=== PATIENT | male | born 1955 | race Caucasian/White ===

== ENCOUNTER 2016-02-17 14:56 | Emergency (ER) | payer MEDICAID ==
[2016-02-17] MEDS ORDERED: IPRATROPIUM/ALBUTEROL 3 ML DEYVIAL IH ONE ×2 (16:09→17:15)
--- NOTE | 2016-02-17 16:09 | DX ---
AP and lateral chest - February 17, 2016 Clinical indication: Low oxygen saturations. Comparison: July 11, 2013. Findings: Heart size is upper limits of normal. There is mild prominence of the live bilaterally and very mild increased interstitial markings. Bones are grossly unremarkable, except for degenerative ch anges. Cardiophrenic angles remain sharp. Impression: Query early CHF. Less likely this could represent diffuse interstitial pneumonia. Critical results relayed by Dr. Clint Belle to Dr. Rambo Lindsey on February 17, 2016, at 1603 hours.
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
[2016-02-17 16:41] LABS: HEMATOCRIT 40.5 % (40.0-51.0); HEMOGLOBIN 13.9 g/dL (13.7-17.5); MEAN CELL HEMOGLOBIN 33.7 pg (27.9-34.1); MEAN CELL HEMOGLOBIN CONCENTR. 34.3 g/dL (32.4-36.7); MEAN CELL VOLUME 98.3 fL (81.5-99.8); MEAN PLATELET VOLUME 9.4 fL (8.7-11.7); PLATELET COUNT 222 10^3/uL (150-400); RED BLOOD CELL COUNT 4.12 10^6/uL (4.40-6.38)
[2016-02-17 16:42] LABS: % IMMATURE GRANULYOCYTES 0.2 % (0.0-1.1)
[2016-02-17 16:43] LABS: ABSOLUTE IMMATURE GRANULOCYTES 0.01 10^3/uL (0.00-0.10); ADD DIFF? NO; ADD MORPH? NO; ADD SCAN? NO
--- NOTE | 2016-02-17 16:44 | CPEKG ---
Heart Rate: 76 RR Interval: 789 P-R Interval: 152 QRSD Interval: 106 QT Interval: 380 QTC Interval: 428 P [place]: 50 QRS [place]: 46 T Wave [place]: 52 EKG Severity - NORMAL ECG - EKG Impression: SINUS RHYTHM Electronically Signed By: Rambo Lindsey 17-Feb-2016 17:07:39
[2016-02-17 16:45] VITALS: BP 112/80
[2016-02-17 16:59] LABS: ALANINE AMINOTRANSFERASE 24 IU/L (21-72); ALBUMIN 3.2 g/dL (3.5-5.0); ALKALINE PHOSPHATASE 59 IU/L (38-126); ANION GAP 7 mEq/L (8-16); ASPARTATE AMINOTRANSFERASE 18 IU/L (17-59); BILIRUBIN,TOTAL 0.8 mg/dL (0.1-1.4); CALCIUM 8.1 mg/dL (8.5-10.4); CARBON DIOXIDE 32 mEq/l (22-31); CHLORIDE 98 mEq/L (97-110); CREATININE 1.2 mg/dL (0.7-1.3); GLOMERULAR FILTRATION RATE > 60; GLUCOSE 102 mg/dL (70-100); POTASSIUM 3.9 mEq/L (3.5-5.2); SODIUM 137 mEq/L (134-144); TOTAL PROTEIN 6.1 g/dL (6.3-8.2)
[2016-02-17 17:04] LABS: TROPONIN I < 0.012 ng/mL (0-0.034)
[2016-02-17 17:10] VITALS: PULSE 79; RESP 20; O2SAT 97
[2016-02-17] MEDS ORDERED: predniSONE 20 MG TAB PO ONE (17:14)
== END 2016-02-17 18:10 | disposition home or self-care (01) ==
LOC: CED 14:56
DX: R06.02 Shortness of breath (principal); R07.1 Chest pain on breathing; R09.81 Nasal congestion; R05 Cough; Z72.0 Tobacco use
CPT/HCPCS: 71020-PO; 80053-PO; 83880-PO; 84484-PO; 85025-PO; 99214-PO; G0463-PO

== ENCOUNTER 2016-07-25 16:55 | Inpatient (IN) | payer MEDICAID ==
--- NOTE | 2016-07-25 17:08 | CPEKG ---
Heart Rate: 82 RR Interval: 732 P-R Interval: 172 QRSD Interval: 98 QT Interval: 376 QTC Interval: 439 P [place]: 70 QRS [place]: 83 T Wave [place]: 67 EKG Severity - OTHERWISE NORMAL ECG - EKG Impression: SINUS RHYTHM EKG Impression: BORDERLINE RIGHT AXIS DEVIATION Electronically Signed By: Paige Bah 25-Jul-2016 21:36:59
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
[2016-07-25] MEDS ORDERED: NS 500 ML IV ONE (17:52)
[2016-07-25 17:56] LABS: % IMMATURE GRANULYOCYTES 0.1 % (0.0-1.1); ABSOLUTE IMMATURE GRANULOCYTES 0.01 10^3/uL (0.00-0.10); ADD DIFF? NO; ADD MORPH? NO; ADD SCAN? NO; ATYPICAL LYMPHOCYTE FLAG 20 (0-99); FRAGMENT RBC FLAG 0 (0-99); HEMATOCRIT 45.5 % (40.0-51.0); HEMOGLOBIN 15.3 g/dL (13.7-17.5); LEFT SHIFT FLG 0 (0-99); LIPEMIA HEMOLYSIS FLAG 80 (0-99); MEAN CELL HEMOGLOBIN 33.6 pg (27.9-34.1); MEAN CELL HEMOGLOBIN CONCENTR. 33.6 g/dL (32.4-36.7); MEAN CELL VOLUME 99.8 fL (81.5-99.8); MEAN PLATELET VOLUME 9.8 fL (8.7-11.7); PLATELET CLUMPS FLAG 0 (0-99); PLATELET COUNT 233 10^3/uL (150-400); RED BLOOD CELL COUNT 4.56 10^6/uL (4.40-6.38); RED CELL DISTRIBUTION WIDTH 14.5 % (11.5-15.2)
[2016-07-25] MEDS ORDERED: HYDROmorphONE/DILAUDID 1 MG/ML SYR ONE (17:56)
[2016-07-25] MEDS ORDERED: HYDROmorphONE/DILAUDID 1 MG/ML SYR IVP ONE ×2 (17:56→18:54)
[2016-07-25 18:03] LABS: ALANINE AMINOTRANSFERASE 27 IU/L (21-72); ALBUMIN 3.9 g/dL (3.5-5.0); ALKALINE PHOSPHATASE 88 IU/L (38-126); ANION GAP 10 mEq/L (8-16); ASPARTATE AMINOTRANSFERASE 22 IU/L (17-59); BILIRUBIN,TOTAL 0.6 mg/dL (0.1-1.4); BILIRUBIN-CONJUGATED 0.4 mg/dL (0.0-0.5); BILIRUBIN-UNCONJUGATED 0.2 mg/dL (0.0-1.1); CALCIUM 8.9 mg/dL (8.5-10.4); CARBON DIOXIDE 29 mEq/l (22-31); CHLORIDE 100 mEq/L (97-110); CREATININE 1.8 mg/dL (0.7-1.3); GLOMERULAR FILTRATION RATE 38; GLUCOSE 115 mg/dL (70-100); POTASSIUM 4.3 mEq/L (3.5-5.2); SODIUM 139 mEq/L (134-144); TOTAL PROTEIN 7.1 g/dL (6.3-8.2)
[2016-07-25 18:14] LABS: TROPONIN I < 0.012 ng/mL (0-0.034)
[2016-07-25 20:47] LABS: COLOR YELLOW; LEUKOCYTE ESTERASE,URINE NEGATIVE (NEGATIVE); NITRITE,URINE NEGATIVE (NEGATIVE)
[2016-07-25] MEDS ORDERED: NICOTINE POLACRILEX 2 MG GUM B PRN (21:18)
[2016-07-25] MEDS ORDERED: PROMETHAZINE HCL 25 MG/ML INJ IVP PRN (21:18)
[2016-07-25] MEDS ORDERED: ALBUTEROL 3 ML DEYVIAL IH PRN (21:18)
[2016-07-25] MEDS ORDERED: HYDROmorphONE/DILAUDID 1 MG/ML SYR IVP PRN (21:18)
[2016-07-25] MEDS ORDERED: oxyCODONE IR 5 MG TAB PO PRN (21:18)
[2016-07-25] MEDS ORDERED: ACETAMINOPHEN 325 MG TAB PO PRN (21:18)
[2016-07-25] MEDS ORDERED: ONDANSETRON 4 MG/2 ML VIAL IVP PRN (21:18)
[2016-07-25] MEDS ORDERED: ONDANSETRON DISINTEGRATING 4 MG TAB PO PRN (21:18)
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
[2016-07-25] MEDS ORDERED: NON-FORMULARY NEW DRUG (Ranitidine Hcl [Ranitidine Hcl] 150 MG) PO PRN (23:46)
[2016-07-25] MEDS ORDERED: ALBUTEROL 60 PUFFS/8 GM MDI IH PRN (23:46)
[2016-07-26] MEDS ORDERED: FAMOTIDINE 20 MG TAB PO PRN (00:23)
[2016-07-26] MEDS: QUEtiapine FUMARATE 200 MG TAB PO SCH ×2 (00:23→20:56)
[2016-07-26] MEDS: PREGABALIN 50 MG CAP PO SCH ×3 (00:23→20:57)
[2016-07-26] MEDS: NICOTINE 21 MG/24 HR PATCH TD SCH ×2 (00:29→07:54)
[2016-07-26] MEDS: DIAZEPAM 10 MG/2 ML SYR IVP PRN ×3 (04:54→17:33)
[2016-07-26 05:15] LABS: % IMMATURE GRANULYOCYTES 0.2 % (0.0-1.1); ABSOLUTE IMMATURE GRANULOCYTES 0.01 10^3/uL (0.00-0.10); ADD DIFF? NO; ADD MORPH? NO; ADD SCAN? NO; ATYPICAL LYMPHOCYTE FLAG 0 (0-99); FRAGMENT RBC FLAG 0 (0-99); HEMATOCRIT 41.2 % (40.0-51.0); HEMOGLOBIN 13.7 g/dL (13.7-17.5); LEFT SHIFT FLG 0 (0-99); LIPEMIA HEMOLYSIS FLAG 80 (0-99); MEAN CELL HEMOGLOBIN 33.3 pg (27.9-34.1); MEAN CELL HEMOGLOBIN CONCENTR. 33.3 g/dL (32.4-36.7); MEAN CELL VOLUME 100.2 fL (81.5-99.8); MEAN PLATELET VOLUME 9.8 fL (8.7-11.7); PLATELET CLUMPS FLAG 0 (0-99); PLATELET COUNT 195 10^3/uL (150-400); RED BLOOD CELL COUNT 4.11 10^6/uL (4.40-6.38); RED CELL DISTRIBUTION WIDTH 14.5 % (11.5-15.2)
[2016-07-26 05:32] LABS: ANION GAP 6 mEq/L (8-16); CALCIUM 8.5 mg/dL (8.5-10.4); CARBON DIOXIDE 28 mEq/l (22-31); CHLORIDE 104 mEq/L (97-110); CREATININE 1.4 mg/dL (0.7-1.3); GLOMERULAR FILTRATION RATE 51; GLUCOSE 95 mg/dL (70-100); POTASSIUM 4.4 mEq/L (3.5-5.2); SODIUM 138 mEq/L (134-144)
[2016-07-26 05:38] LABS: TROPONIN I < 0.012 ng/mL (0-0.034)
[2016-07-26] MEDS: IPRATROPIUM/ALBUTEROL 3 ML DEYVIAL IH SCH ×4 (05:43→21:26)
[2016-07-26] MEDS: DULoxetine 30 MG CAP PO SCH (07:53)
[2016-07-26] MEDS: oxyCODONE IR 5 MG TAB PO PRN (08:18)
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
[2016-07-26] MEDS ORDERED: ENOXAPARIN 40 MG/0.4 ML SYR SC SCH (09:00)
--- NOTE | 2016-07-26 09:35 | CPEKG ---
Heart Rate: 72 RR Interval: 833 P-R Interval: 160 QRSD Interval: 102 QT Interval: 396 QTC Interval: 434 P [place]: 50 QRS [place]: 87 T Wave [place]: 61 EKG Severity - OTHERWISE NORMAL ECG - EKG Impression: SINUS RHYTHM EKG Impression: BORDERLINE RIGHT AXIS DEVIATION Electronically Signed By: Kristofer Mojica 26-Jul-2016 17:37:35
--- NOTE | 2016-07-26 13:24 | ECHO ---
[id number] + + [id number] : : [place] [id number] : : [phone] + Adult Echocardiographic Report + -------+ :Name: RINA LOZANO Date: 07/26/2016 11:44 AM BP: 109/66 mmH g : : Hospital Admission Number: [id number] Locati on: 392: :: 1955 Gender: Male Height: 73 in : :Age: 61 yrs Race: WH Weight: 211 lb : :Reason For Study: chest pain : : BSA: 2.2 meter s2 : :History: chest pain 2 days ago : + -------+ MMode/2D Measurements \T\ Calculations IVSd: 1.0 cm RVDd: 3.8 cm FS: 40.5 % Ao root diam: LVPWd: 0.89 cm LVIDd: 4.5 cm EDV(Teich): 93.9 ml3.2 cm LVIDs: 2.7 cm ESV(Teich): 26.9 ml EF(Teich): 71.3 % LVOT diam: 2.1 cmLVLd ap4: 9.1 cm SV(MOD-sp4): LVOT area: EDV(MOD-sp4): 79.0 ml 3.6 cm2 111.0 ml LVLs ap4: 7.4 cm ESV(MOD-sp4): 32.0 ml EF(MOD-sp4): 71.2 % Normal Measurement Values: + + :LVIDd (3.5-5.7cm) IVSd (0.6-1.1cm) LVPWd (0.6-1.1cm) Aortic Root (2.0-3.7cm)Left Atrium (1.5-4.0cm): :LV Vol(d) (76-115ml) LV Vol(s) (29-48ml) Ejec Fraction (50-65%)PV Warren (0.6- 1.2m/s) TV Warren (0.4-1.0m/s) : :MV E Warren (0.8-1.0m/s)MV A Warren (0.3-1.0m/s)LVOT Warren (0.7-1.2m/s) Asc Ao Warren ( 0.9-1.8m/s) : + + Doppler Measurements \T\ Calculations MV E max warren: Ao V2 max: LV V1 max: SV(LVOT): 59.7 cm/sec 225.9 cm/sec 93.3 cm/sec 70.5 ml MV A max warren: Ao max P.4 mmHg LV V1 max P.2 cm/sec Ao mean P.5 mmHg MV E/A: 0.96 12.6 mmHg LV V1 mean PG: MV dec time: 0.25 secAo V2 mean: 1.9 mmHg 168.6 cm/sec LV V1 mean: Ao V2 VTI: 47.2 cm 62.0 cm/sec DONNELL(I,D): 1.5 cm2 LV V1 VTI: 19.8 cm DONNELL(V,D): 1.5 cm2 PA V2 max: TR max warren: 99.1 cm/sec 255.2 cm/sec PA max P.9 mmHg TR max P.0 mmHg RAP systole: 5.0 mmHg RVSP(TR): 31.0 mmHg Left Ventricle The left ventricle is normal in size and function. There is borderline concentric left ventricular hypertrophy. Ejection Fraction = 70%. No regional wall motion abnormalities noted. Right Ventricle The right ventricle is normal in size and function. Atria The left atrial size is normal. Right atrial size is normal. Mitral Valve The mitral valve is normal in structure and function. There is no mitral valve stenosis. There is trace to mild mitral regurgitation. Tricuspid Valve The tricuspid valve is normal in structure and function. There is no tricuspid stenosis. There is trace tricuspid regurgitation. Right ventricular systolic pressure is 31mmHg. Aortic Valve The aortic valve is trileaflet. Mild Aortic Valve Calcification. Mild valvular aortic stenosis. Mild aortic regurgitation. Pulmonic Valve The pulmonic valve is normal in structure and function. Mild pulmonic valvular regurgitation. Great Vessels The aortic root is normal size. Pericardium/Pleural There is no pericardial effusion. Conclusion A two-dimensional transthoracic echocardiogram with M-mode and Doppler was performed. The left ventricle is normal in size and function. There is borderline concentric left ventricular hypertrophy. Ejection Fraction = 70%. There is trace to mild mitral regurgitation. There is trace tricuspid regurgitation. Right ventricular systolic pressure is 31mmHg. Mild valvular aortic stenosis. Mild aortic regurgitation. Mild pulmonic valvular regurgitation. Final Reading Physician: Johan Russell signed on 07/26/2016 01:22 PM Ordering Physician: Ling Dove Performed By: Maribel Flaherty
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
[2016-07-26 17:14] LABS: INR 1.02 (0.83-1.16); PROTIME(PATIENT) 13.3 SEC (12.0-15.0)
[2016-07-27] MEDS: PREGABALIN 50 MG CAP PO SCH ×2 (04:50→20:04)
[2016-07-27 05:49] LABS: ANION GAP 6 mEq/L (8-16); CALCIUM 8.5 mg/dL (8.5-10.4); CARBON DIOXIDE 26 mEq/l (22-31); CHLORIDE 106 mEq/L (97-110); CREATININE 1.1 mg/dL (0.7-1.3); GLOMERULAR FILTRATION RATE > 60; GLUCOSE 93 mg/dL (70-100); POTASSIUM 4.4 mEq/L (3.5-5.2); SODIUM 138 mEq/L (134-144)
[2016-07-27] MEDS: IPRATROPIUM/ALBUTEROL 3 ML DEYVIAL IH SCH ×4 (06:05→22:57)
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
[2016-07-27] MEDS: oxyCODONE IR 5 MG TAB PO PRN (08:04)
[2016-07-27] MEDS: NICOTINE 21 MG/24 HR PATCH TD SCH (08:07)
[2016-07-27] MEDS: DULoxetine 30 MG CAP PO SCH (08:09)
[2016-07-27] MEDS: DIAZEPAM 10 MG/2 ML SYR IVP PRN ×2 (08:57→20:11)
[2016-07-27] MEDS ORDERED: REGADENOSON 0.4 MG/5 ML SYR IVP ONE (09:37)
[2016-07-27] MEDS ORDERED: IOPAMIDOL (ISOVUE-M 200) 20 ML VIAL ONE (10:07)
[2016-07-27] MEDS ORDERED: LIDOCAINE 1% 300 MG/30 ML SDV ONE (10:07)
--- NOTE | 2016-07-27 12:41 | CPR ---
[f rep st] NONINVASIVE CARDIAC PROCEDURE REPORT DATE OF PROCEDURE: 07/27/2016 PROCEDURE: Lexiscan nuclear stress test. ORDERING PHYSICIAN: Ann Herndon MD, hospitalist. REASON FOR TEST: Chest pain. Resting EKG shows a sinus bradycardia rhythm. No ischemic changes noted. Blood pressure at rest 10 4/60. Oxygen saturation 96%. He is on 5 L of oxygen per nasal prong. STRESS PORTION: Lexiscan was injected rapidly, followed by saline flush. Cardiolite was then injec cheri, followed by saline flush. He had no chest pain with the infusion. He did feel flushed. Blood pressure 102/60, heart rate 88, oxygen saturation 96%. There were no EKG changes. RECOVERY: He spontaneously recovered with no EKG changes. The flushing did subside. Caffeine was given. Resting blood pressure 102/60, resting heart rate 88, oxygen saturation 95%. At this time, he currently is stable for nuclear imaging. /[id number]/MODL
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
[2016-07-27] MEDS: QUEtiapine FUMARATE 200 MG TAB PO SCH (20:05)
[2016-07-27 22:32] VITALS: RESP 16
[2016-07-28] MEDS: PREGABALIN 50 MG CAP PO SCH (02:49)
[2016-07-28] MEDS: IPRATROPIUM/ALBUTEROL 3 ML DEYVIAL IH SCH ×2 (06:18→11:23)
[2016-07-28 07:54] VITALS: BP 145/76; PULSE 68; TEMP 98.5; O2SAT 93
--- NOTE | 2016-07-28 08:04 | NEUSURGPN ---
Assessment/Plan: Assessment: 61 yo male admitted to IM with severe low back pain as well as posterior leg pain with right EHL and TA weakness Plan: -LBP with right EHL and TA weakness: CT myelogram completed and does not give a great explanation to the right sided symptoms. Pt has minimal disc bulges L1/2 and L4-S1 with NFS at L5/S1 with Left>Right at this level. This opposite of the right sided symptoms. One could consider an empiric SHY and eval from IR. Other considerations for an EMG with Neurology. Dr Mercado and I did see him this am and we ordered a right hip xray this am -pt with chronic facial droop -IM ordered cardiac nuclear test-defer to IM -PT/OT-CPM -warning signs given -call with any questions or concerns -Pt seen by Dr Mercado Subjective: Awake and alert. No new complaints or concerns. No velázquez/neck/chest/abd or gu complaints. Objective: AAO x 3/ PERRLA/EOMI no droop CN 2-12 grossly intact +lt touch GILBERT x 4 5/5 BUE/BLE = except R TA/EHL weakness at 4+/5 Neuro Check Frequency: per routine Urinary Catheter in Place: No - Physician Discussed Patient with : Rogelio Patient Seen by : Rogelio Neurosurgery Physical Exam - Vitals, I&O, Labs I and O 07/27/16 07/28/16 07/29/16 05:59 05:59 05:59 Intake Total 250 600 Output Total 1000 650 280 Balance -750 -50 -280 Intake: Oral (ml) 250 600 Output: Urine (ml) 1000 650 280 Urinal 1000 650 280 Other: Intake Quantity Yes Sufficient Number of Voids Urinal 2 Vital Signs Temp Pulse Resp BP Pulse Ox 36.9 C 68 16 145/76 H 93 07/28/16 07:51 07/28/16 07:51 07/28/16 07:51 07/28/16 07:51 07/28/16 07:51 Laboratory Results 07/26/16 04:41 07/27/16 04:56 ICD10 Worksheet Patient Problems: Problems Problem Status Onset Chest pain Acute Pneumonia Acute Renal failure Acute
[2016-07-28] MEDS: oxyCODONE IR 5 MG TAB PO PRN (08:37)
[2016-07-28] MEDS: NICOTINE 21 MG/24 HR PATCH TD SCH (08:40)
[2016-07-28] MEDS: DULoxetine 30 MG CAP PO SCH (08:40)
[2016-07-28] MEDS: DIAZEPAM 10 MG/2 ML SYR IVP PRN (09:22)
[2016-07-28] MEDS ORDERED: METHOCARBAMOL 750 MG TAB PO PRN (09:34)
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
[2016-07-28] MEDS ORDERED: LACTULOSE 20 GM/30 ML UDCUP PO PRN (09:47)
[2016-07-28] MEDS ORDERED: BISACODYL 10 MG SUPP PR PRN (09:47)
[2016-07-28] MEDS ORDERED: POLYETHYLENE GLYCOL 3350 17 GM PKT PO SCH (10:00)
[2016-07-28 16:06] LABS: COLOR YELLOW; LEUKOCYTE ESTERASE,URINE NEGATIVE (NEGATIVE); NITRITE,URINE NEGATIVE (NEGATIVE)
[2016-07-28] MEDS ORDERED: SENNOSIDES/DOCUSATE SODIUM TAB PO SCH (21:00)
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
== END 2016-07-28 15:15 | disposition home or self-care (01) | DRG 552 ==
LOC: OBSVTOIN 21:33 → F3E 22:25
PROVIDERS: ADMIT Internal Medicine; ATTEND Internal Medicine
PROC: B02B1ZZ Computerized Tomography (CT Scan) of Spinal Cord using Low Osmolar Contrast (ICD-10-PCS; principal; 2016-07-27)
DX: M51.26 Other intervertebral disc displacement, lumbar region (principal); N17.9 Acute kidney failure, unspecified; F11.20 Opioid dependence, uncomplicated; M51.27 Other intervertebral disc displacement, lumbosacral region; G89.29 Other chronic pain; R07.9 Chest pain, unspecified; K59.00 Constipation, unspecified; R09.02 Hypoxemia; F17.210 Nicotine dependence, cigarettes, uncomplicated; J44.9 Chronic obstructive pulmonary disease, unspecified; Z18.89 Other specified retained foreign body fragments
CPT/HCPCS: 96374; 97162-GP; 97165-GO; 97530-GP; A9500; J1170; J2785; Q9966

== ENCOUNTER → 2017-02-02 | Outpatient (CLI) | payer MEDICAID | LOC: FIMAGING 20:24 | PROVIDERS: ATTEND Family Medicine | DX: M25.561 Pain in right knee (principal) ==

== ENCOUNTER → 2017-03-01 | Outpatient (CLI) | payer MEDICAID | LOC: CIMAGING 15:16 | PROVIDERS: ATTEND Family Medicine | DX: R11.10 Vomiting, unspecified (principal); R10.13 Epigastric pain; R11.2 Nausea with vomiting, unspecified; J18.9 Pneumonia, unspecified organism; K59.00 Constipation, unspecified | CPT/HCPCS: 74022-PO; 80053-PO; 80307; 82150-PO; 83690-PO; 85025-PO; G0483 ==

== ENCOUNTER 2018-04-12 20:20 | Inpatient (IN) | payer MEDICAID ==
[2018-04-12] MEDS ORDERED: HYDROmorphONE/DILAUDID 2 MG/ML INJ IVP ONE (21:19)
[2018-04-12] MEDS ORDERED: ONDANSETRON 4 MG/2 ML VIAL IVP ONE (21:19)
[2018-04-12] MEDS ORDERED: NS 1,000 ML IV ONE ×2 (21:19→22:27)
--- NOTE | 2018-04-12 21:19 | EDPHY ---
H & P Time Seen by Provider: 04/12/18 21:05 HPI/ROS: Chief complaint. Postop pain HPI. 62-year-old male presents emergency department with vomiting and unable to keep his medication down. He had plastic surgery left side of his face April 10 [facility] ([phone]) plastic surgeon. 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 He was nauseated when he was discharged yesterday on April 11. Began have vomiting last evening at home. Can't keep medication down. No fever. Complains of pain and unable to take pain medication. ROS 10 systems were reviewed and negative with the exception of the elements mentioned in the history of present illness Past Medical/Surgical History: Chronic pain, lithotripsy, CVA, sleep apnea Social History: , nonsmoker, no alcohol Smoking Status: Former smoker Physical Exam: General Appearance: Alert well-developed male mild distress vital signs are stable Eyes: Pupils equal round reactive. Injection to the left sclera. ENT, Mouth: Mucous membranes are moist. Respiratory: There are no retractions, lungs are clear to auscultation. Cardiovascular: Regular rate and rhythm. Gastrointestinal: Abdomen is soft and nontender, no masses, bowel sounds normal. Neurological: Awake and alert, sensory and motor exams grossly normal. Skin: Sutures appear intact. Drain behind the left ear. Ecchymosis under the left mandible. No evidence for cellulitis or infection Musculoskeletal: Neck is supple nontender. Extremities symmetrical, full range of motion. Psychiatric: Patient is oriented X 3, there is no agitation. Constitutional: Initial Vital Signs Temperature (C) 37.1 C 04/12/18 20:24 Heart Rate 54 L 04/12/18 20:24 Respiratory Rate 18 04/12/18 20:24 Blood Pressure 140/87 H 04/12/18 20:24 O2 Sat (%) 92 04/12/18 20:24 O2 Delivery Mode Room Air O2 (L/minute) 2 Allergies/Adverse Reactions: No Known Allergies Allergy (Verified 04/12/18 20:28) Home Medications: Medication Instructions Recorded Pregabalin [Lyrica 50mg (*)] 50 mg PO DAILY@04 02/17/16 Ranitidine HCl 150 mg PO HS PRN 02/17/16 oxyCODONE HCL [Oxycontin] 10 mg PO BID@04,16 02/17/16 rOPINIRole HCL [Requip 5mg (*)] 5 mg PO HS 02/17/16 Albuterol [Proventil Inhaler HFA 2 puffs IH DAILY PRN 07/25/16 (*)] DULoxetine [Cymbalta 30 MG (*)] 90 mg PO DAILY 07/25/16 Pregabalin [Lyrica 50mg (*)] 100 mg PO HS 07/25/16 QUEtiapine FUMARATE [Seroquel 200 400 mg PO HS 07/25/16 mg (*)] oxyCODONE IR [Oxycodone Ir (*)] 40 mg PO BID@04,12 PRN 07/25/16 Acetaminophen [Tylenol 325mg (*)] 650 mg PO Q4HRS PRN #0 tab 07/28/16 Polyethylene Glycol 3350 [Miralax 17 gm PO DAILY pkt 07/28/16 17 gm (*)] Sennosides/Docusate Sodium 1 - 2 tab PO BID tab 07/28/16 [Senokot-S] Promethazine HCl [Phenergan 25mg 25 mg PO Q4-6PRN PRN #10 tab 04/12/18 (*)] Medical Decision Making Procedures: IV normal saline. Dilaudid, Zofran ED Course/Re-evaluation: Patient will nauseated after Zofran. He was given boucher IV Evaluation 1025 p.m. Patient is much improved. Into his with and I discussed laboratory evaluation, treatment plan including criteria turn importance of follow-up further evaluation. They expressed and agreement Differential Diagnosis: Postop nausea and pain in a patient with chronic pain. Mild hydration. I considered electrolyte abnormalities. No evidence for infection - Data Points Laboratory Results: Laboratory Results 04/12/18 21:29 04/12/18 21:29 04/12/18 04/12/18 21:29 21:29 WBC 10.96 10^3/uL H 10^3/uL (3.80-9.50) RBC 4.50 10^6/uL 10^6/uL (4.40-6.38) Hgb 14.9 g/dL g/dL (13.7-17.5) Hct 44.5 % % (40.0-51.0) MCV 98.9 fL fL (81.5-99.8) MCH 33.1 pg pg (27.9-34.1) MCHC 33.5 g/dL g/dL (32.4-36.7) RDW 15.0 % % (11.5-15.2) Plt Count 216 10^3/uL 10^3/uL (150-400) MPV 9.9 fL fL (8.7-11.7) Neut % (Auto) 81.9 % H % (39.3-74.2) Lymph % (Auto) 10.9 % L % (15.0-45.0) [place] % (Auto) 6.8 % % (4.5-13.0) Eos % (Auto) 0.0 % L % (0.6-7.6) Baso % (Auto) 0.1 % L % (0.3-1.7) Nucleat RBC Rel Count 0.0 % % (0.0-0.2) Absolute Neuts (auto) 8.99 10^3/uL H 10^3/uL (1.70-6.50) Absolute Lymphs (auto) 1.19 10^3/uL 10^3/uL (1.00-3.00) Absolute Monos (auto) 0.74 10^3/uL 10^3/uL (0.30-0.80) Absolute Eos (auto) 0.00 10^3/uL L 10^3/uL (0.03-0.40) Absolute Basos (auto) 0.01 10^3/uL L 10^3/uL (0.02-0.10) Absolute Nucleated RBC 0.00 10^3/uL 10^3/uL (0-0.01) Immature Gran % 0.3 % % (0.0-1.1) Immature Gran # 0.03 10^3/uL 10^3/uL (0.00-0.10) Sodium 139 mEq/L mEq/L (135-145) Potassium 3.2 mEq/L L mEq/L (3.5-5.2) Chloride 102 mEq/L mEq/L (97-110) Carbon Dioxide 31 mEq/l mEq/l (22-31) Anion Gap 6 mEq/L mEq/L (6-14) BUN 24 mg/dL H mg/dL (7-23) Creatinine 1.2 mg/dL mg/dL (0.7-1.3) Estimated GFR > 60 Glucose 125 mg/dL H mg/dL (70-100) Calcium 9.3 mg/dL mg/dL (8.5-10.4) Medications Given: Discontinued Medications Hydromorphone HCl (Dilaudid) 0.5 mg IVP EDNOW ONE Stop: 04/12/18 21:20 Last Admin: 04/12/18 21:39 Dose: 0.5 mg Sodium Chloride (Ns) 1,000 mls @ 0 mls/hr IV EDNOW ONE; Wide Open PRN Reason: Protocol Stop: 04/12/18 21:20 Last Admin: 04/12/18 21:38 Dose: 1,000 mls Ondansetron HCl (Zofran) 4 mg IVP EDNOW ONE Stop: 04/12/18 21:20 Last Admin: 04/12/18 21:39 Dose: 4 mg Departure - Departure Disposition: Home, Routine, Self-Care Clinical Impression: Vomiting Qualifiers: Vomiting type: unspecified Vomiting Intractability: non-intractable Nausea presence: with nausea Qualified Code(s): R11.2 - Nausea with vomiting, unspecified Condition: Good Instructions: Acute Nausea and Vomiting (ED) Additional Instructions: Frequent, small sips fluids well nauseated Phenergan 1 pill every 4 hr as needed for nausea and vomiting Return for worsening symptoms Call your plastic surgeon at [facility] tomorrow to discuss how you are doing Referrals: Kala Dailey MD [Primary Care Provider] - 1 day, if not improved Prescriptions: Promethazine HCl [Phenergan 25mg (*)] 25 mg PO Q4-6PRN PRN #10 tab PRN Reason: Nausea/Vomiting, Use 1st
[2018-04-12] MEDS ORDERED: HYDROmorphONE/DILAUDID 1 MG/ML INJ ONE (21:33)
[2018-04-12 21:41] LABS: PLATELET COUNT 216 10^3/uL (150-400)
[2018-04-12] MEDS ORDERED: PROMETHAZINE HCL 25 MG/ML INJ IVP ONE (22:03)
[2018-04-12] MEDS ORDERED: PROMETHAZINE 25 MG PREPACK #4 BTL TAKEHOME ONE (22:29)
[2018-04-12] MEDS ORDERED: QUEtiapine FUMARATE 200 MG TAB PO ONE (23:06)
[2018-04-12] MEDS ORDERED: ACETAMINOPHEN 325 MG TAB PO PRN (23:26)
[2018-04-12] MEDS ORDERED: PROMETHAZINE HCL 25 MG/ML INJ IVP PRN (23:26)
[2018-04-12] MEDS ORDERED: LORazepam 2 MG/ML INJ IVP PRN (23:26)
[2018-04-13] MEDS: NS W/ 20 KCl/L 1,000 ML IV SCH ×2 (01:56→14:09)
[2018-04-13] MEDS ORDERED: CEPACOL LOZENGE PO PRN (02:54)
[2018-04-13] MEDS ORDERED: BENZONATATE 100 MG CAP PO PRN (02:54)
[2018-04-13 05:47] LABS: PLATELET COUNT 202 10^3/uL (150-400)
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
--- NOTE | 2018-04-13 10:29 | ASMTCMCOM ---
CM Note CM Note Notes: Pt is a 62 M presents with pain after facial surgery and nausea and vomiting. Pt is current with 30/08 home care. CM submit updates. Plan: home with 30/08 Homecare Date Signed: 04/13/2018 10:28 AM Electronically Signed By:JI Gillette
[2018-04-13] MEDS ORDERED: POTASSIUM CL 20 MEQ TAB PO ONE ×2 (11:20→14:30)
[2018-04-13] MEDS ORDERED: BISACODYL 10 MG SUPP PR PRN (11:54)
[2018-04-13] MEDS ORDERED: POLYETHYLENE GLYCOL 3350 17 GM PKT PO PRN (11:54)
[2018-04-13] MEDS ORDERED: LACTULOSE 20 GM/30 ML UDCUP PO PRN (11:54)
[2018-04-13] MEDS ORDERED: MAGNESIUM HYDROXIDE 30 ML UDCUP PO PRN (11:54)
[2018-04-13] MEDS ORDERED: ALBUTEROL 60 PUFFS/8 GM MDI IH PRN (12:01)
[2018-04-13] MEDS ORDERED: RANITIDINE HCL 150 MG PO PRN (12:01)
--- NOTE | 2018-04-13 12:14 | HOSPPROG ---
Hospitalist Progress Note Assessment/Plan: Patient new to my care. Personally reviewed CHIKA He was admitted to [facility] for paralytic ectropion left lower lid, s/p static sling for facial paralysis by Dr. Yañez. History here obtain from [place] (his partner). Discharged home Tuesday and developed N/V that has been persistent. No ill contact, cough, fever. His baseline MS A&O x 3, but forgetfull. Has expressive aphasia. Occasional cough with eating. Previously on Oxycontin that was stopped due to insurance. PCP started on MS Contin, but caused diarrhea; so he has been of it for 2 weeks. Been taking Oxycodone only Left pupil has been smaller since surgery Was discharged with home health. FU with PA in 2 weeks A&P #. N/V: maybe related to surgery? No reported infectious sxs. 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 Subjective: vomiting this morning Objective: Vital Signs Temp Pulse Resp BP Pulse Ox 37.6 C 63 14 165/81 H 94 04/13/18 11:52 04/13/18 11:52 04/13/18 11:52 04/13/18 11:52 04/13/18 11:52 Laboratory Results 04/13/18 04:20 04/13/18 04:00 04/12/18 04/13/18 04/14/18 05:59 05:59 05:59 Intake Total 1600 580 Output Total 100 Balance 1500 580 - Time Spent With Patient Time Spent with Patient: greater than 35 minutes Time Spent with Patient: Greater than 35 minutes spent on this patients care, greater than 50% of time spent counseling, educating, and coordinating care regarding the above mentioned plan. - Physical Exam Constitutional: uncomfortable Eyes: other (left pupil smaller than right) Ears, Nose, Mouth, Throat: moist mucous membranes, other (left periauricular stiches, SHANNEN in place) Cardiovascular: regular rate and rhythym Respiratory: no respiratory distress Gastrointestinal: normoactive bowel sounds, soft, non-tender abdomen, No tenderness Genitourinary: No dupree in urethra Musculoskeletal: other (right thigh SHANNEN drain with surrounding erythema, appears to be contact dermatitis. No purulent drainage) Neurologic: facial droop (left) Psychiatric: encephalopathic (alert to hosp, President. Not date), flat affect ICD10 Worksheet Patient Problems: Problems Problem Status Onset Vomiting Acute Chest pain Acute Pneumonia Acute Renal failure Acute
[2018-04-13] MEDS: ONDANSETRON 4 MG/2 ML VIAL IVP PRN (16:52)
[2018-04-13] MEDS: PREGABALIN 100 MG CAP PO SCH ×2 (16:53→23:07)
[2018-04-13] MEDS: oxyCODONE IR 5 MG TAB PO PRN (18:04)
[2018-04-13] MEDS: SENNOSIDES/DOCUSATE SODIUM TAB PO SCH (20:11)
[2018-04-13] MEDS: VARENICLINE TARTRATE 1 MG TAB PO SCH (20:11)
[2018-04-13] MEDS: QUEtiapine FUMARATE 200 MG TAB PO SCH (20:13)
[2018-04-14] MEDS: NS W/ 20 KCl/L 1,000 ML IV SCH ×3 (03:01→23:30)
[2018-04-14] MEDS ORDERED: FAMOTIDINE 20 MG TAB PO PRN (08:15)
[2018-04-14] MEDS: VARENICLINE TARTRATE 1 MG TAB PO SCH ×2 (09:14→20:47)
[2018-04-14] MEDS: PREGABALIN 100 MG CAP PO SCH (09:28)
[2018-04-14] MEDS: SENNOSIDES/DOCUSATE SODIUM TAB PO SCH ×2 (09:28→20:47)
[2018-04-14] MEDS: ONDANSETRON DISINTEGRATING 4 MG TAB PO PRN ×2 (09:51→14:37)
[2018-04-14] MEDS ORDERED: POTASSIUM CL 20 MEQ TAB PO ONE (10:07)
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
--- NOTE | 2018-04-14 10:48 | PDMN ---
Medical Necessity Medical necessity: Change to IP, as of 04/13/18, per MD & MCG M-370; los >2 mn for ongoing management of persistent vomiting & nausea w/poor PO intake, deconditioning & possible dysphagia; requiring workup/further monitoring, IV antiemetics, IVFs & therapies; hx recent L lower lid paralytic ectropion s/p static sling for facial paralysis, COPD, multiple CVAs w/expressive aphasia, chronic encephalopathy
[2018-04-14] MEDS: AMOXICILLIN/CLAVULANATE POT 875/125 MG TAB PO SCH ×2 (11:08→20:46)
[2018-04-14] MEDS: oxyCODONE IR 5 MG TAB PO PRN (14:38)
[2018-04-14] MEDS: ONDANSETRON 4 MG/2 ML VIAL IVP PRN (20:46)
[2018-04-14] MEDS: QUEtiapine FUMARATE 200 MG TAB PO SCH (20:47)
[2018-04-15] MEDS: AMOXICILLIN/CLAVULANATE POT 875/125 MG TAB PO SCH ×2 (08:54→20:48)
[2018-04-15] MEDS: NS W/ 20 KCl/L 1,000 ML IV SCH (08:54)
[2018-04-15] MEDS: VARENICLINE TARTRATE 1 MG TAB PO SCH ×2 (08:59→20:49)
[2018-04-15] MEDS: SENNOSIDES/DOCUSATE SODIUM TAB PO SCH ×2 (08:59→20:49)
[2018-04-15] MEDS: ONDANSETRON 4 MG/2 ML VIAL IVP PRN (09:01)
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
[2018-04-15] MEDS ORDERED: hydrALAZINE 10 MG TAB PO PRN (09:46)
[2018-04-15] MEDS: oxyCODONE IR 5 MG TAB PO PRN (15:02)
[2018-04-15] MEDS: ONDANSETRON DISINTEGRATING 4 MG TAB PO PRN (15:02)
[2018-04-15] MEDS: LISINOPRIL 2.5 MG TAB PO SCH (16:23)
[2018-04-15] MEDS: QUEtiapine FUMARATE 200 MG TAB PO SCH (20:48)
[2018-04-16] MEDS: oxyCODONE IR 5 MG TAB PO PRN (04:36)
[2018-04-16 07:35] VITALS: BP 149/90
[2018-04-16] MEDS ORDERED: ASPIRIN EC 81 MG TAB PO SCH (09:00)
[2018-04-16] MEDS: LISINOPRIL 2.5 MG TAB PO SCH (09:57)
[2018-04-16] MEDS: AMOXICILLIN/CLAVULANATE POT 875/125 MG TAB PO SCH (09:57)
[2018-04-16] MEDS: VARENICLINE TARTRATE 1 MG TAB PO SCH (09:58)
[2018-04-16] MEDS: SENNOSIDES/DOCUSATE SODIUM TAB PO SCH (09:58)
--- NOTE | 2018-04-16 09:58 | PDIAF ---
- Diagnosis Diagnosis: post-op nausea / vomiting, CVA, recent eye surgery Code Status: Full Code - Medication Management Discharge Medications: electronically signed and located in the Home Medication List. PICC Care - Routine: N/A - Orders Services needed: Registered Nurse, Physical Therapy, Occupational Therapy, Speech Language Pathologist Oxygen: 2 LPM Diet Recommendation: cardiac -low fat low salt Diet Texture: Dysphagia 3 - Advanced - Moist, Bite-Size Additional Instructions: Follow up with Dr. Angel (plastic surgery) Monday 04/17 for follow up and suture removal. - Follow Up Care Current Providers and Referrals: Kala Dailey MD [Primary Care Provider] - 1 day, if not improved
--- NOTE | 2018-04-16 10:50 | ASMTLACE ---
LACE Length of stay for Answers: 2 days current admission Comorbidities - select Answers: Cerebrovascular disease all that apply (CVA, TIA, aneurysms, vasc ular dementia) Chronic pulmonary disease Opioid dependence / Chronic pain # of Emergency department Answers: 1-2 visits in the last 6 months Score: 10 Date Signed: 04/16/2018 10:50 AM Electronically Signed By:Danyelle Ta RN
--- NOTE | 2018-04-16 10:54 | ASMTCMCOM ---
CM Note CM Note Notes: Met with patient who is unable to provide me with spelling of his address. He is medially cleared for discharge. POB on census. Called [place] so to confirm address and she was reluctant to provide address initially but yielded Patient final order sent via [employer]. CM available should other needs arise. Plan: Home with 30/08 [facility]. Date Signed: 04/16/2018 10:53 AM Electronically Signed By:Danyelle Ta RN
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
== END 2018-04-16 12:29 | disposition home health service (06) | DRG 249 ==
LOC: INTOOBSV 23:20 → F3N 04-13 00:55 → OBSVTOIN 04-13 15:30
PROVIDERS: ADMIT Family Medicine; ATTEND Family Medicine
DX: R11.2 Nausea with vomiting, unspecified (principal); G92 Toxic encephalopathy; G89.18 Other acute postprocedural pain; E86.9 Volume depletion, unspecified; G31.84 Mild cognitive impairment of uncertain or unknown etiology; I10 Essential (primary) hypertension; E87.6 Hypokalemia; R29.810 Facial weakness; J44.9 Chronic obstructive pulmonary disease, unspecified; G89.29 Other chronic pain; G47.33 Obstructive sleep apnea (adult) (pediatric); F11.90 Opioid use, unspecified, uncomplicated; F12.90 Cannabis use, unspecified, uncomplicated; Z86.73 Personal history of transient ischemic attack (TIA), and cerebral infarction without residual deficits; Z18.89 Other specified retained foreign body fragments; Z87.891 Personal history of nicotine dependence
CPT/HCPCS: 92523-GN; 92526-GN; 92610-GN; 96374; 97116-GP; 97161-GP; 97166-GO; 97530-GP; G0378; J1170; J2405; J2550

== ENCOUNTER 2018-04-21 17:13 | Emergency (ER) | payer MEDICAID ==
[2018-04-21 17:29] VITALS: BP 143/85
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
== END 2018-04-21 18:00 | disposition home or self-care (01) ==
LOC: CED 17:13
DX: R29.810 Facial weakness (principal); S01.80XD Unspecified open wound of other part of head, subsequent encounter; W34.00XS Accidental discharge from unspecified firearms or gun, sequela; Y99.9 Unspecified external cause status
CPT/HCPCS: 99282-ER

== ENCOUNTER 2018-04-30 21:29 | Observation (INO) | payer MEDICAID ==
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
[2018-04-30] MEDS ORDERED: HYDROmorphONE/DILAUDID 2 MG/ML INJ IVP ONE (22:01)
[2018-04-30] MEDS ORDERED: NS 1,000 ML IV ONE (22:01)
[2018-04-30] MEDS ORDERED: ONDANSETRON 4 MG/2 ML VIAL IVP ONE (22:01)
[2018-04-30 22:51] LABS: PLATELET COUNT 185 10^3/uL (150-400)
[2018-04-30 22:58] LABS: INR 1.03 (0.83-1.16); PROTIME(PATIENT) 13.1 SEC (12.0-15.0)
[2018-05-01] MEDS ORDERED: IOPAMIDOL (ISOVUE-300) 100 ML BTL ONE (01:07)
[2018-05-01] MEDS ORDERED: LORazepam 2 MG/ML INJ IVP ONE (02:00)
[2018-05-01] MEDS ORDERED: LORazepam 2 MG/ML INJ ONE (02:01)
[2018-05-01] MEDS ORDERED: HYDROmorphONE/DILAUDID 1 MG/ML INJ IVP PRN (02:21)
[2018-05-01] MEDS ORDERED: ACETAMINOPHEN 325 MG TAB PO PRN (02:21)
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
[2018-05-01] MEDS: NS 1,000 ML IV SCH ×2 (03:15→20:11)
[2018-05-01] MEDS: oxyCODONE IR 5 MG TAB PO PRN ×4 (05:58→21:57)
[2018-05-01] MEDS: ONDANSETRON 4 MG/2 ML VIAL IVP PRN ×4 (06:26→20:11)
[2018-05-01 06:56] LABS: PLATELET COUNT 175 10^3/uL (150-400)
--- NOTE | 2018-05-01 09:31 | ASMTCMCOM ---
CM Note CM Note Notes: Pt is a 62 y/o man admitted for nausea adn vomiting. Therapies have been ordered and awaiting recommendations. Needs are TBD at this time. CM to follow. Plan: TBD Date Signed: 05/01/2018 09:30 AM Electronically Signed By:JI Vasquez
[2018-05-01] MEDS: ENOXAPARIN 40 MG/0.4 ML SYR SC SCH (09:51)
[2018-05-01] MEDS: PROMETHAZINE HCL 25 MG/ML INJ IVP PRN ×3 (12:41→21:57)
[2018-05-01] MEDS ORDERED: ONDANSETRON DISINTEGRATING 4 MG TAB PO PRN (16:43)
[2018-05-01] MEDS ORDERED: ALBUTEROL 60 PUFFS/8 GM MDI IH PRN (16:43)
--- NOTE | 2018-05-01 16:46 | HOSPPROG ---
Hospitalist Progress Note Assessment/Plan: Patient seen and examined this morning. Admitted earlier this morning with nausea and vomiting. Reportedly with diarrhea but this has resolved apparently. CT imaging without any worrisome findings. Uncertain etiology to his symptoms but possibly something infectious. GI about fire has been run and awaiting results. Objective: Vital Signs Temp Pulse Resp BP Pulse Ox 36.8 C 67 18 156/84 H 89 L 05/01/18 15:27 05/01/18 15:27 05/01/18 15:27 05/01/18 15:27 05/01/18 15:27 Microbiology 05/01/18 10:37 Gastrointestinal Tract Panel (PCR) - Final Stool No Organism Detected By Pcr Laboratory Results 05/01/18 06:50 05/01/18 06:50 04/30/18 05/01/18 05/02/18 05:59 05:59 05:59 Intake Total 1460 Output Total 100 Balance 1360 PT 13.1 SEC (12.0-15.0) 04/30/18 22:30 INR 1.03 (0.83-1.16) 04/30/18 22:30 ICD10 Worksheet Patient Problems: Problems Problem Status Onset Chest pain Acute Pneumonia Acute Renal failure Acute Vomiting Acute
[2018-05-01] MEDS ORDERED: QUEtiapine FUMARATE 200 MG TAB PO SCH (21:00)
[2018-05-01] MEDS: PREGABALIN 100 MG CAP PO SCH (21:57)
[2018-05-01] MEDS: FAMOTIDINE 20 MG TAB PO PRN (21:58)
[2018-05-02] MEDS: ONDANSETRON DISINTEGRATING 4 MG TAB PO PRN ×3 (03:27→13:30)
[2018-05-02] MEDS: oxyCODONE IR 5 MG TAB PO PRN ×3 (03:27→11:14)
[2018-05-02] MEDS: NS 1,000 ML IV SCH (03:31)
[2018-05-02 07:51] VITALS: BP 120/69
[2018-05-02] MEDS: PREGABALIN 100 MG CAP PO SCH ×2 (08:16→16:04)
[2018-05-02] MEDS: ENOXAPARIN 40 MG/0.4 ML SYR SC SCH (08:16)
[2018-05-02] MEDS: FAMOTIDINE 20 MG TAB PO PRN (08:17)
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
--- NOTE | 2018-05-02 14:08 | ASMTCMCOM ---
CM Note CM Note Notes: Pts case discussed in tx rounds. CM spoke to [facility] PT and she has cleared patient to d/c home without any needs. [facility] reports that pt is at his baseline. Pt has a that manages his care at home. No other needs at this time. CM made a referral to [facility]. CM available for changes. Plan: Independent Date Signed: 05/02/2018 02:08 PM Electronically Signed By:JI Vasquez
--- NOTE | 2018-05-02 14:09 | ASMTLACE ---
LACE Length of stay for Answers: 1 day current admission Acuity / Level of Answers: No Care: Did the patient have an inpatient admission? Comorbidities - select Answers: Cerebrovascular disease all that apply (CVA, TIA, aneurysms, vasc ular dementia) Chronic pulmonary disease Opioid dependence / Chronic pain Other Notes: Cognitive impairement; HTN # of Emergency department Answers: 3-4 visits in the last 6 months Score: 12 Date Signed: 05/02/2018 02:09 PM Electronically Signed By:JI Vasquez
--- NOTE | 2018-05-02 14:38 | GCON ---
[f rep st] CONSULTATION DATE OF CONSULTATION: 05/02/2018 CHIEF COMPLAINT: Right leg drain. HISTORY OF PRESENT ILLNESS: This is a 62-year-old male admitted to the hospital service here at the [facility] since the evening of the . Briefly, he presented that evening with abdominal pain, nausea, and vomiting. He is well known to the service. He has an extensive past medical histo ry. At any rate, he was admitted for profuse nausea and vomiting with diarrhea. Over the last few d ays, he continued to do well, and his symptoms had subsequently resolved. It was on examination toda y that they noticed that he had a drain in his right lower extremity. Briefly, the patient underwent harvesting of the right tensor fascia emily for a graft on his left eye approximately 2 weeks ago. T his was performed at [facility]. Per the patient and his , they had followup with a andrew mcadams front end assistant at the [facility] about a week ago, and the decision was made to keep the drain as t he output per report was too high. Since that time, the patient really did not even know that he has a drain and had no complaints about it until it was found on examination today. On my examination, the drain has some frothy drainage, which has been minimal. The site also has some purulent drainage around it, but the remainder of the skin in the operative site appears soft, clean, dry, and intact. PAST MEDICAL HISTORY: Significant for chronic pain, renal stones, stroke, nausea, vomiting, weakness , facial droop, COPD, and hypoxia. PAST SURGICAL HISTORY: Significant for multiple orthopedic procedures, a stone lithotripsy, and a sk in graft to the left eye performed on June 10 with harvesting of the right tensor fascia emily. FAMILY HISTORY: Noncontributory. SOCIAL HISTORY: Former smoker. Lives with independently. CURRENT MEDICATIONS: Reviewed. ALLERGIES: None. REVIEW OF SYSTEMS: A full 10-point review was performed. PHYSICAL EXAMINATION: VITAL SIGNS: Temperature 36.9, blood pressure 120/69, heart rate 68, and he i s 91% on 2 L nasal cannula. CONSTITUTIONAL: He is a little bit confused, but otherwise comfortable appearing. EYES: His pupils are equal, round, and reactive to light. His left eye operative site a ppears good. There is some facial droop on that left side. EARS, NOSE, MOUTH, AND THROAT: Moist mu cous membranes. Hearing appears to be normal. Poor dentition. CARDIOVASCULAR: He has a regular ra te and rhythm. RESPIRATORY: He has no respiratory distress, rales, or rhonchi. GI: His abdomen is soft, nondistended, and nontender. SKIN: His right lower extremity thigh has an approximate 5 cm i ncision on the lateral portion of the thigh, which is clean and dry. There is no surrounding erythem a or underlying fluctuance. The drain site which is distal to this has a drain in it. There is some fibrinous or purulent exudate around this, and the drain has some frothy serous drainage in it. MUS CULOSKELETAL: Full strength without tenderness. NEUROLOGIC: He is alert and oriented x3. His cran ial nerves 2 through 12 appear intact. PSYCHIATRIC: He is interacting appropriately. He is a littl e bit anxious. LYMPH/HEME/IMMUNOLOGIC: No cervical, groin, or supraclavicular lymphadenopathy appre ciated. LABS: Last drawn yesterday. White blood cell count is normal at 5 without a left shift. Hemoglobin and hematocrit are stable at 13 and 42. Coags on the day of admission are normal with an INR of 1.0 3. Chemistry drawn yesterday is significant for an elevated glucose at 104, a low calcium at 8.4, an d a low anion gap at 5. IMAGING: None. ASSESSMENT AND PLAN: A 62-year-old male status post right lower extremity surgery for harvest for sk in graft to the left eye. Per my review, it has been over 2 weeks since the patient had this surgery . It is unclear why no one removed the drain, but it has clearly been in too long at this point in t jozef. Remarkably, the operative site has no underlying fluctuance or erythema. He has no fevers, and his white count is normal. It is somewhat surprising that there is not a large fluid collection her e, but it appears as though most of this is actually sealed and is not infected. Plan will be to rem ove the drain. I will pack the area with Hydrofera Blue. Cultures were already sent, which are like ly going to be positive. We will plan empirically place him on Keflex for the next 5 days. He is to [facility] with his original operative surgeon or me as needed for checkin g this. He is to change it every 2 days and shower in between. /[id number]/MODL
[2018-05-02] MEDS ORDERED: CEPHALEXIN 500 MG CAP PO SCH (18:00)
== END 2018-05-02 16:27 | disposition home or self-care (01) ==
LOC: F2W 05-01 03:00
PROVIDERS: ADMIT Student in an Organized Health Care Education/Training Program; ATTEND Student in an Organized Health Care Education/Training Program
DX: R11.2 Nausea with vomiting, unspecified (principal); R19.7 Diarrhea, unspecified; J44.9 Chronic obstructive pulmonary disease, unspecified; I10 Essential (primary) hypertension; K57.30 Diverticulosis of large intestine without perforation or abscess without bleeding; G31.84 Mild cognitive impairment of uncertain or unknown etiology; G89.29 Other chronic pain; E86.9 Volume depletion, unspecified; Z86.73 Personal history of transient ischemic attack (TIA), and cerebral infarction without residual deficits; Z87.891 Personal history of nicotine dependence
CPT/HCPCS: 74177; 96361; 96372; 96374; 96375; 96376; 97161; 97166; 99285; G0378; 84484-ER; J1170; J1650; J2060; J2405; J2550; Q9967

== ENCOUNTER 2018-07-23 18:31 | Inpatient (IN) | payer OTHER, MEDICAID | END 2018-07-29 11:37 | disposition home or self-care (01) | LOC: F3E 21:35 ==